=== PATIENT | female | born 1965 | race Caucasian/White ===

== ENCOUNTER 2023-10-30 08:28 | Emergency (ER) | payer MEDICAID ==
[2023-10-30 09:38] LABS: STREP A BY PCR NOT DETECTED (NOT DETECT)
[2023-10-30 09:50] LABS: INFLUENZA A NAA NEGATIVE (NEGATIVE); INFLUENZA B NAA NEGATIVE (NEGATIVE); RESPIRATORY SYNCYTIAL VIR NAA NEGATIVE (NEGATIVE)
[2023-10-30 09:58] LABS: CORONAVIRUS COVID-19 NAA POSITIVE (NEGATIVE)
[2023-10-30 10:10] VITALS: BP 142/71; PULSE 97
== END 2023-10-30 10:05 | disposition home or self-care (01) ==
LOC: JP.ED 08:28
DX: U07.1 COVID-19 (principal); Z87.891 Personal history of nicotine dependence
CPT/HCPCS: 0241U; 87651; 99283